=== PATIENT | male | born 1965 | race Caucasian/White ===

== ENCOUNTER 2016-03-24 23:25 | Emergency (ER) | payer OTHER ==
--- NOTE | 2016-03-24 23:32 | EDPRACDOC ---
- General Information Stated Complaint: POSSIBLE STROKE Time Seen by Provider: 03/24/16 23:26 Information Source: Patient, [employer] Mode Of Arrival: Ambulance Home Medications: Home Medications MetFORMIN (Immediate Release) [Glucophage Immediate Release] 500 mg PO BID 01/02 Levofloxacin [Levaquin] 750 mg PO DAILY #10 tablet 05/15/13 Lisinopril 1 tab PO DAILY 05/15/13 Allergies/Adverse Reactions: Allergies Allergy/AdvReac Type Severity Reaction Status Date / Time No Known Allergies Allergy Verified 05/15/13 05:25 - History of Present Illness HPI: PT BROUGHT BY EMS. PT GOT HOME FROM WORK 2029. SYMTPOMS STARTED ABOUT 1930 WITH VERTIGO, HEAD FELT STOPPED UP, DISORIENTED. NUMBNESS IN ARMS, BLURRED VISION. SHARP STABBING RIGHT ANTERIOR NECK PAIN AND RIGHT EAR PAIN. THINKS HE MAY HAVE HIT HEAD GETTING INTO THE CAR. PT HAS FULL RECOLLECTION OF EVENTS AFTER WORK. ED Past Medical History - History Reviewed Yes Nurses notes reviewed and agree except as marked - Patient Medical History Cardiac History: Reports: Hypertension Systemic History: Reports: Diabetes EDM Review of Systems - Review of Systems ROS Negative Except as Marked: Yes All systems reviewed and were negative except as marked - Physical Exam Constitutional: Alert (Awake), No apparent distress Oriented to: Time, Person, Place Last recorded Vital Signs: Oxygen Pulse Oxygen Saturation O2 Device Oxygen Flow Rate Fraction of Inspired Oxygen ( FIO2) - HEENT Head: Normal ( normocephalic) Eye Exam: Normal (PERRL, EOMI, Sclera white) Oropharynx: Normal (Pharynx:Moist without exudate,Gums-no swelling) Nose: No Symptoms Reported (septum midline) Neck: Normal (FROM, trachea at midline) - Respiratory/Cardiovascular Respiratory: Normal - CTA (BBS clear to auscultation without adventitious sounds ) Cardiovascular: Normal (RRR without murmur, gallop or rub) - GI Auscultation: Normal (NABS) Palpation: Normal (Soft,No rebound or guarding, non distended) Tenderness: Non tender Chatman's Sign: Negative - Musculoskeletal Back: Normal (Non-Tender) Extremities: Normal (Normal tone, Pulses 2+ No cyanosis or edema, FROM) - Integumentary Skin: Normal, Warm, Dry Lymphatics: Normal (no adenopathy) - Neurologic Memory Impaired: Normal Motor Function: Normal (Normal tone, Pulses 2+ No cyanosis or edema, FROM) Cranial Nerve: Normal (CN II-X11 intact sensation, strength 5/5) Cerebellar: Normal Perception: Normal Neurologic Comment: NIH STROKE SCALE 0. - Re-evaluation Re-evaluation 1 Re-evaluation Time: 00:49 COLD, SHAKY, TINGLING IN ARMS, HEADACHE CONTINUES. - Results 03/24/16 23:50 03/24/16 23:50 - EKG EKG #1 EKG Time: 23:45 -: Yes EKG interpreted by me Rate: bpm: 76 [place]: Normal Rhythm: NSR Block: None Hypertrophy: None ST: Nonsp Comments: abnormal ekg Comparison: 01/03/12 (no change) - Departure Referrals: Arsen Belle II, MD [Primary Care Provider] - One Week Prescriptions: No Action MetFORMIN (Immediate Release) [Glucophage Immediate Release] 500 mg PO BID Lisinopril 1 tab PO DAILY Levofloxacin [Levaquin] 750 mg PO DAILY #10 tablet ED Stroke / Weakness Exam - Neurologic Memory Impaired: Normal Orientation: Time, Person, Place Motor Function Tested: Normal (Normal tone, Pulses 2+ No cyanosis or edema, FROM ) Cranial Nerve: Normal (CN II-X11 intact sensation, strength 5/5) Behavior Description: Other (intermittent crying. pt states he just feels bad.)
[2016-03-24] MEDS ORDERED: Pharmacy Review for Metformin - IV Contrast Given SCH (23:45)
--- NOTE | 2016-03-24 23:50 | DIRPT ---
CLINICAL DATA: Headache and altered mental status. Confusion. EXAM: CT HEAD WITHOUT CONTRAST TECHNIQUE: Contiguous axial images were obtained from the base of the skull through the vertex without intravenous contrast. COMPARISON: 09/01/2014 FINDINGS: No fracture or destructive process. 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 Anterior nasal septal thinning versus small perforation. Small polyps or mucous retention cyst in the right maxillary antrum. No evidence of acute infarct, hemorrhage, hydrocephalus, or edema. 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 Intracranial calcified atherosclerosis. These results were called by telephone at the time of interpretation on 03/24/2016 at 11:[address] AIDA CORDERO DO, who verbally acknowledged these results. IMPRESSION: 1. No acute finding or change from 2014. 2. Atherosclerosis and remote right caudate lacunar infarct. Electronically Signed By: Colton Dick M.D. On: 03/24/2016 23:47
[2016-03-24] MEDS ORDERED: LORAZEPAM 1 MG TAB PO ONE (23:55)
[2016-03-25 00:02] LABS: MPV 8.8 fL (7.4-10.4)
[2016-03-25 00:06] LABS: ALL NEG? YES; MDMA* NEG (NEGATIVE); METHAMPHETAMINES NEG (NEGATIVE); OXYCODONE NEG (NEGATIVE)
[2016-03-25 00:12] LABS: BLOOD UREA NITROGEN 11 MG/DL (9-20); CALCIUM 9.1 MG/DL (8.4-10.2); CALCULATED OSMOLALITY 268 MOs/Kg (270-290); CHLORIDE 101 mEq/L (98-107); GLUCOSE 161 MG/DL (70-99); SODIUM LEVEL 138 mEq/L (137-146); TOTAL PROTEIN 7.7 G/DL (6.3-8.2)
[2016-03-25 00:20] VITALS: BMI 35.7
[2016-03-25 00:23] LABS: PARTIAL THROMB. TIME 27.5 SEC (22-35); PT-INR 1.2
--- NOTE | 2016-03-25 00:26 | DIRPT ---
CLINICAL DATA: Confusion and altered mental status. EXAM: PORTABLE CHEST 1 VIEW COMPARISON: 05/15/2013 FINDINGS: Cardiomegaly, increased from prior exam, may be accentuated by portable technique. Increased interstitial prominence from prior. Limited left basilar assessment due to soft tissue attenuation. No gross pleural effusion. No pneumothorax. IMPRESSION: Cardiomegaly and interstitial prominence of increased from prior. This may be accentuated by portable technique. Mild congestive failure is considered. PA and lateral views recommended when patient is able. Electronically Signed By: Jeanie Brantley M.D. On: 03/25/2016 00:23
[2016-03-25 00:48] LABS: SEG NEUTROPHIL 83 % (45-76)
[2016-03-25] MEDS ORDERED: ACETAMINOPHEN 325 MG/TAB TABLET PO ONE (00:48)
[2016-03-25] MEDS ORDERED: MORPHINE 4 MG/ML INJECTION IV ONE (00:48)
[2016-03-25 00:49] LABS: TOTAL CELL COUNT 100
[2016-03-25] MEDS ORDERED: MECLIZINE 25 MG TAB PO ONE (03:25)
[2016-03-25 03:55] VITALS: BP 154/91; PULSE 69; TEMP 98.3
== END 2016-03-25 03:53 | disposition home or self-care (01) ==
LOC: ED 23:25
DX: R42 Dizziness and giddiness (principal); R51 Headache; F41.9 Anxiety disorder, unspecified
CPT/HCPCS: 36415; 70450; 71010; 80053; 80307; 84484; 85007; 85027; 85610; 85730; 93005; 96360; 99284; J2270; J3490